=== PATIENT | male | born 1935 | race Caucasian/White ===

== ENCOUNTER 2017-10-11 07:41 | Emergency (ER) | payer MEDICARE, OTHER ==
[2017-10-11] MEDS ORDERED: Diazepam 5 MG TAB ONE (08:20)
[2017-10-11] MEDS ORDERED: HYDROcodone/Acetaminophen 10/325 mg Tablet ONE (08:20)
[2017-10-11] MEDS ORDERED: predniSONE 20 MG TAB ONE (08:20)
== END 2017-10-11 10:14 | disposition home or self-care (01) ==
LOC: ERS 07:41
DX: S39.012A Strain of muscle, fascia and tendon of lower back, initial encounter (principal); E03.9 Hypothyroidism, unspecified; Z85.46 Personal history of malignant neoplasm of prostate; Z79.899 Other long term (current) drug therapy; X58.XXXA Exposure to other specified factors, initial encounter; Y93.53 Activity, golf
CPT/HCPCS: 99283; J7506

== ENCOUNTER 2018-10-24 11:46 | Inpatient (IN) | payer MEDICARE, OTHER ==
[2018-10-24 12:25] LABS: #Eosinphils 0.1 thou/uL (0.0-0.7); #Lymphocytes 1.4 thou/uL (1.20-3.40); #Monocytes 1.3 thou/uL (0.11-0.59); #Neutrophils 6.2 thou/uL (1.40-6.50); %Basophils 0.4 % (0.0-1.0); %Eosinophils 1.6 % (0.0-10.0); %Lymphocytes 15.3 % (21.0-51.0); %Monocytes 14.4 % (0.0-10.0); %Neutrophils 68.3 % (42.0-75.0); Hemoglobin 14.8 g/dL (14.0-18.0); Mean Corpuscular HGB CONC 32.6 g/dL (32.0-36.0); Mean Corpuscular Hemoglobin 30.1 pg (27.0-31.0); Mean Corpuscular Volume 92.3 fL (78.0-98.0); Mean Platelet Volume 8.6 fL (7.4-10.4); Platelet Count 121 thou/uL (130-400); RBC Distribution Width 12.8 % (11.5-14.5); Red Blood Cell (RBC) Count 4.93 mill/uL (4.70-6.10)
[2018-10-24] MEDS ORDERED: metroNIDAZOLE 500 MG/100 ML BAG ONE (12:58)
[2018-10-24] MEDS ORDERED: Morphine 4 MG/ML VIAL ONE ×3 (12:58→18:45)
[2018-10-24 13:09] LABS: ALT (SGPT) 19 U/L (8-55); AST (SGOT) 19 U/L (5-34); Albumin 3.9 g/dL (3.4-4.8); Alkaline Phosphatase 65 U/L (40-150); Anion Gap 14 mmol/L (10-20); BUN (Urea Nitrogen) 19 mg/dL (8.4-25.7); Calc. Creatinine Clearance 0 mL/min (70-130); Calcium 9.2 mg/dL (7.8-10.44); Carbon Dioxide 19 mmol/L (23-31); Chloride 107 mmol/L (98-107); Estimated GFR-MDRD 43; Glucose 107 mg/dL (83-110); Potassium 4.1 mmol/L (3.5-5.1); Protein, Total 6.9 g/dL (5.8-8.1); Sodium 136 mmol/L (136-145)
--- NOTE | 2018-10-24 15:35 | CT ---
CONTRAST ENHANCED CT IMAGES ABDOMEN AND PELVIS: HISTORY: Abdominal pain, bloody stools. Contrast enhanced CT images of the abdomen and pelvis is obtained. IV contrast was given. The lung bases are unremarkable. No evidence of free intraperitoneal air is seen. The liver, is unremarkable. The gallbladder has been surgically removed. The spleen is unremarkable e xcept for some splenic calcifications compatible with granulomatous disease. The small bowel is unrem arkable no evidence of air fluid level. There is extensive colonic thickening and diffuse mucosal enhancement throughout the entire colon. th is is compatible with extensive colitis. There is also extensive sigmoid diverticulosis present. Bilateral renal cortical cysts are present. Incidentally noted, likely duodenal diverticulum was present. There is also extensive changes of spondylosis in the lumbar spine. IMPRESSION: 1. Extensive colonic thickening and enhancement compatible with colitis. 2. Sigmoid colonic diverticulosis. 1. POS: MARISSA
[2018-10-24] MEDS ORDERED: Ondansetron PF 4 MG/2 ML Vial IVP PRN (17:28)
[2018-10-24] MEDS ORDERED: Acetaminophen 325 MG TAB PO PRN (17:28)
[2018-10-24] MEDS ORDERED: hydrALAZINE 20 MG/ML VIAL SLOW IVP PRN (17:56)
--- NOTE | 2018-10-24 18:35 | HP ---
PRIMARY CARE PROVIDER: Dr. Joe Jackson. He is in [place], [place]. , fax #[phone]. CHIEF COMPLAINT: Rectal bleeding. HISTORY OF PRESENT ILLNESS: Mr. Balbuena is a pleasant 83-year-old gentleman, who was seen at [facility] on October 24, 2018. He lives in [place]. He is visiting here. Four days ago, he played golf. He reports that the ground was muddy. He was tired after a long day. He made dinner with fish. That night, he felt chills. Next morning, he had abdominal discomfort. He describes which was across his mid abdomen. In the next couple of days, he had a salad, steak and oysters. He reports that his stool was initially firm. It subsequently became soft, followed by liquid stools. He reports having rectal bleeding. He reports that he had 3 episodes of blood in stool yesterday. He denies any nausea or vomiting. He also reports that his abdominal pain was worse yesterday. He describes which was across his mid abdomen, dull, constant, 6/10 at its worst, nonradiating, accompanied by bloody stools. He did not sleep well last night. He denies any chest pain, shortness of breath, or lightheadedness. REVIEW OF SYSTEMS: All other systems reviewed and found to be negative. PAST MEDICAL HISTORY: 1. Dyslipidemia. 2. Hypothyroidism. 3. Bowel obstruction x3, which resolved with conservative measures. 4. Hypertension. PAST SURGICAL HISTORY: Cholecystectomy. SOCIAL HISTORY: No tobacco use or recreational drug use, occasional alcohol use. FAMILY HISTORY: His father of myocardial infarction at age 68. CODE STATUS: I discussed his code status. He is full code. ALLERGIES: NO KNOWN DRUG ALLERGIES. CURRENT MEDICATIONS: 1. Synthroid 75 mcg daily. 2. Aspirin 325 mg daily. 3. Coenzyme Q10. 4. Magnesium. 5. Medication for blood pressure, that he is unable to recall the name of. PHYSICAL EXAMINATION: GENERAL: On examination, Mr. Balbuena is awake and alert, not in acute distress. VITAL SIGNS: Blood pressure is 134/70, pulse 76, respiratory rate 20, and oxygen saturation 97% on room air. He is afebrile. EYES: No scleral icterus, no conjunctival pallor. ENT: Moist mucosal membranes. No oropharyngeal erythema or exudates. NECK: Supple, nontender, trachea is in midline. RESPIRATORY: Accessory muscles of breathing are not active. Chest wall movements are symmetric bilaterally. Lungs are clear to auscultation without wheeze, rhonchi, or crepitations. CARDIOVASCULAR: S1 and S2 are heard, regular. Peripheral pulses are palpable. No carotid bruit. No pericardial rub. ABDOMEN: Soft, mild right upper quadrant tenderness, no guarding or rigidity. Bowel sounds are heard. He has a scar over the right upper quadrant. NEUROLOGIC: Cranial nerves 2 through 12 intact, deep tendon reflexes 2+. MUSCULOSKELETAL: Power is 5/5 in all 4 extremities. SKIN: No rashes or subcutaneous nodules. LYMPHATIC: No cervical lymphadenopathy. PSYCHIATRIC: Normal mood, normal affect. The patient is oriented to person, place, and time. LABORATORY AND DIAGNOSTIC DATA: Mr. Balbuena's labs and investigations were reviewed. He has normal white count, normal hemoglobin, decreased platelet count of 121,000. Decreased carbon dioxide of 19, elevated creatinine of 1.57, normal blood urea nitrogen, otherwise unremarkable comprehensive metabolic profile. He had a CT scan of the abdomen and pelvis, which showed extensive colonic thickening and enhancement compatible with colitis and sigmoid colonic diverticulosis. ASSESSMENT AND PLAN: Mr. Balbuena is a pleasant 83-year-old gentleman, who was seen at [facility] on October 24, 2018. His problem list includes: 1. Lower gastrointestinal bleed: Mr. Balbuena is presenting with lower GI bleed, with evidence of colitis and diverticulosis on CT scan. He will be admitted to the hospital for further management. We will start him on empiric antibiotics for infectious colitis. We will check stool for evidence of infection. We will consult Gastroenterology for opinion and help with further management. 2. Hypertension: We will start him on p.r.n. hydralazine for blood pressure spikes. We will resume home medications once clarified. 3. Hypothyroidism: We will continue Synthroid. 4. Dyslipidemia: We will continue statin once clarified. Many thanks for allowing me to participate in your patient's care. Please feel free to contact me with any questions or concerns. LEVEL OF RISK: Moderate. LEVEL OF COMPLEXITY: Moderate. Job ID: [id number]
[2018-10-24] MEDS: Sodium Chloride 0.9% 1,000 ML IV SCH (20:01)
[2018-10-24] MEDS: metroNIDAZOLE 500 MG in Premix Bag 1 BAG IVPB SCH (20:01)
[2018-10-24 22:46] VITALS: BMI 36.9
[2018-10-25] MEDS: Morphine 4 MG/ML VIAL SLOW IVP PRN ×2 (00:06→05:11)
[2018-10-25] MEDS: metroNIDAZOLE 500 MG in Premix Bag 1 BAG IVPB SCH (05:10)
[2018-10-25] MEDS: Sodium Chloride 0.9% 1,000 ML IV SCH (05:13)
[2018-10-25 07:46] LABS: #Eosinphils 0.2 thou/uL (0.0-0.7); #Lymphocytes 1.1 thou/uL (1.20-3.40); #Monocytes 1.2 thou/uL (0.11-0.59); #Neutrophils 5.5 thou/uL (1.40-6.50); %Basophils 0.5 % (0.0-1.0); %Lymphocytes 13.3 % (21.0-51.0); %Monocytes 14.7 % (0.0-10.0); %Neutrophils 69.5 % (42.0-75.0); Hemoglobin 13.1 g/dL (14.0-18.0); Mean Corpuscular HGB CONC 33.5 g/dL (32.0-36.0); Mean Corpuscular Hemoglobin 30.2 pg (27.0-31.0); Mean Corpuscular Volume 90.2 fL (78.0-98.0); Mean Platelet Volume 8.6 fL (7.4-10.4); Platelet Count 120 thou/uL (130-400); RBC Distribution Width 12.8 % (11.5-14.5); Red Blood Cell (RBC) Count 4.35 mill/uL (4.70-6.10)
[2018-10-25 08:07] LABS: Anion Gap 12 mmol/L (10-20); BUN (Urea Nitrogen) 15 mg/dL (8.4-25.7); Calc. Creatinine Clearance 61 mL/min (70-130); Calcium 8.4 mg/dL (7.8-10.44); Carbon Dioxide 21 mmol/L (23-31); Chloride 107 mmol/L (98-107); Estimated GFR-MDRD 48; Glucose 98 mg/dL (83-110); Potassium 4.2 mmol/L (3.5-5.1); Sodium 136 mmol/L (136-145)
--- NOTE | 2018-10-25 11:13 | CON ---
DATE OF CONSULTATION: 10/25/2018 REASON FOR CONSULTATION: Colitis. HISTORY OF PRESENT ILLNESS: Fred Balbuena is an 83-year-old man, who splits his time between here and [place], [place]. He has no prior history of gastrointestinal disease. He reports having had a colonoscopy about 10 years ago in [place], which was normal. He was admitted to the hospital last night. He reports that about 5 days ago, he started having chills and rigors. The following day, he started to have some generalized abdominal discomfort. This is a dull and migratory pain throughout most of the abdomen, primarily the lower abdomen. Then, starting a couple of days ago, he began having loose stools, progressing to hematochezia. Initially, this was a small amount of red blood mixed in with the stool, but then yesterday he had a couple more episodes with more bright red blood in the stool. He was admitted to the hospital last night, started on IV ciprofloxacin and Flagyl. His last bowel movement was early this morning and he tells me that this was only slightly blood tinged, quite an improvement from before. His abdominal discomfort has lessened, though he did receive morphine. The CT of the abdomen and pelvis was notable for thickening throughout the entire colon as well as diverticulosis of the sigmoid colon. The gallbladder is absent and the scan is really otherwise normal. Laboratory studies do show some renal insufficiency as well as a mild thrombocytopenia. Stool studies were performed and are negative for C. difficile and Campylobacter as well as shiga toxin. He has no other complaints. Hemoglobin is 13.1. REVIEW OF SYSTEMS: Full review of systems including constitutional, head, eyes, ears, nose, throat, GI, , cardiovascular, respiratory, musculoskeletal, and neurologic systems are negative except as noted in the HPI. PAST MEDICAL HISTORY: Hyperlipidemia, hypothyroidism, hypertension, cholecystectomy, and 3 separate hospitalizations for small bowel obstruction, all treated conservatively and resolved spontaneously. ALLERGIES: NO KNOWN DRUG ALLERGIES. OUTPATIENT MEDICATIONS: 1. Aspirin 325 mg daily. 2. Synthroid. 3. Coenzyme Q10. 4. Magnesium. INPATIENT MEDICATIONS: 1. IV ciprofloxacin. 2. IV Flagyl. 3. IV morphine p.r.n. SOCIAL HISTORY: Alcohol use is occasional. No smoking or drug use. FAMILY HISTORY: Negative for inflammatory bowel disease or GI malignancy. PHYSICAL EXAMINATION: VITAL SIGNS: Temperature 98.2, pulse 65, blood pressure 110/67, and 92% oxygen saturation on room air. GENERAL: An 83-year-old man, sitting in bed comfortably, nontoxic appearing in good spirits, in no distress. SKIN: No jaundice. No rashes were palpable. HEENT: Eyes no scleral icterus. Extraocular movements intact. ENT, mucous membranes moist. No oral lesions. LYMPH: No submandibular or supraclavicular lymphadenopathy. THYROID: Nontender to palpation. HEART: Regular rate and rhythm. LUNGS: Clear to auscultation bilaterally. ABDOMEN: Nondistended. Bowel sounds present. Soft, actually nontender to palpation throughout. No masses or organomegaly appreciated. EXTREMITIES: No peripheral edema. VESSELS: Radial pulses 2+ bilaterally. NEURO: Cranial nerves 2 through 12 intact bilaterally. No focal deficits. LABORATORY STUDIES: Initial hemoglobin was 14.8 and this morning, it is 13.1. WBC 8 and platelets 120. BUN 15, creatinine 1.41, sodium 136, potassium 4.2, total bilirubin 1.0, alkaline phosphatase 65, AST 19, ALT 19, and albumin 3.9. IMAGING STUDIES: CT of the abdomen and pelvis shows sigmoid diverticulosis and thickening of the entire colon. The gallbladder is absent. The skin is otherwise normal. ASSESSMENT AND PLAN: 1. Acute colitis. 2. Hematochezia, secondary to acute colitis. I had a long discussion with the patient and his regarding his presentation. All of his symptoms are acute, and consistent with colitis involving the entire colon. Infectious diarrhea would leave the differential. I do note that stool studies back so far are negative, but often we see this with pathogens that can be identified by stool testing. It is also possible that this represents the onset of inflammatory bowel disease, but the presentation is really too acute to tell. Nothing to be gained by colonoscopy at this particular time. I agree with the antibiotics, which have already been initiated empirically. Continue to treat supportively. Expect that symptoms will improve over the next few days. If not, then colonoscopy investigation could be considered. Regardless, I think he should undergo colonoscopy in the outpatient setting several weeks from now, for diagnostic purposes of symptoms if not resolved and for final colon screening exam if they have resolved. GI can follow along. Please call at anytime with questions or concerns. Job ID: [id number]
[2018-10-25] MEDS ORDERED: Sodium Chloride 0.9% 1,000 ML IV SCH (11:30)
[2018-10-25] MEDS ORDERED: metroNIDAZOLE 500 MG TAB PO SCH (15:00)
[2018-10-25 15:50] VITALS: BP 100/59; TEMP 97.9
--- NOTE | 2018-10-25 18:53 | DIS ---
DATE OF ADMISSION: 10/24/2018 DATE OF DISCHARGE: 10/25/2018 PRIMARY CARE PROVIDER: Dr. Joe Jackson. He is in [place], [place]. . . DISCHARGE DIAGNOSES: 1. Lower gastrointestinal bleed. 2. Colitis. 3. Probable chronic kidney disease. CONDITION OF PATIENT ON THE DAY OF DISCHARGE: Stable. I assessed Mr. Balbuena on the day of discharge. He denies any chest pain or shortness of breath. Vital signs are stable. S1 and S2 are heard, regular. Lungs are clear to auscultation bilaterally. CONSULTATIONS DURING THIS HOSPITALIZATION: Gastroenterology, Edenilson El MD HOSPITAL COURSE: Mr. Balbuena is a pleasant 83-year-old gentleman, who was admitted to [facility] for acute colitis and lower GI bleed on October 24, 2018. Please refer to my history and physical note dated October 24, 2018 for further details. He was seen by Gastroenterology Service. Following admission, Mr. Balbuena showed significant dramatic improvement. He had stools that were nonbloody. His abdominal pain also resolved. He had elevated creatinine of 1.57 at the time of admission, with blood urea nitrogen of 19; and estimated GFR of 43. On the day of discharge, creatinine improved to 1.41 and estimated GFR improved to 48. Blood urea nitrogen continues to be normal. It is unclear whether this is acute or chronic renal failure. He has been advised to stop lisinopril use still he is seen by his primary care provider. He is also advised to check his blood pressure and heart rate 3 times a day and show the readings to his primary care provider. DISCHARGE MEDICATIONS: 1. Aspirin 325 mg daily. 2. Synthroid 75 mcg daily. 3. Ciprofloxacin 500 mg 2 times a day for 1 week. 4. Metronidazole 500 mg 3 times a day for 1 week. Gastroenterology Service felt that he will need colonoscopy as an outpatient. During this hospitalization, he had negative Clostridium difficile assay, negative Campylobacter and shiga toxin tests. Stool culture is preliminary and showed few normal enteric shravan. Many thanks for allowing me to participate in your patient's care. Please feel free to contact me with any questions or concerns. DISCHARGE DESTINATION: Home. TOTAL AMOUNT OF TIME SPENT COORDINATING THIS DISCHARGE: 33 minutes. Job ID: [id number]
[2018-10-25] MEDS ORDERED: Ciprofloxacin 500 MG TAB PO SCH (20:00)
[2018-10-26] MEDS ORDERED: Levothyroxine Sodium 75 MCG TAB PO SCH (06:00)
== END 2018-10-25 19:24 | disposition home or self-care (01) | DRG 392 ==
LOC: ERS 11:46 → SURG A 16:48
PROVIDERS: ADMIT Internal Medicine; ATTEND Internal Medicine
DX: K52.9 Noninfective gastroenteritis and colitis, unspecified (principal); K92.2 Gastrointestinal hemorrhage, unspecified; E78.5 Hyperlipidemia, unspecified; E03.9 Hypothyroidism, unspecified; N18.9 Chronic kidney disease, unspecified; I12.9 Hypertensive chronic kidney disease with stage 1 through stage 4 chronic kidney disease, or unspecified chronic kidney disease; Z90.49 Acquired absence of other specified parts of digestive tract; Z79.82 Long term (current) use of aspirin
CPT/HCPCS: 36415; 74177; 80048; 80053; 82274; 85025; 86850; 86900; 86901; 87045; 87046; 87324; 87449; 87899; 96365; 96375; 96376; J0744; J2270

== ENCOUNTER 2021-01-25 14:30 | Inpatient (IN) | payer MEDICARE ==
[~2021-01-25 14:30] MED LIST: Iopamidol-370 76% 500 ML 1 ML ONE
[2021-01-25] MEDS ORDERED: Ondansetron PF 4 MG/2 ML Vial ONE (14:55)
[2021-01-25] MEDS ORDERED: Morphine 4 MG/ML VIAL ONE (14:55)
[2021-01-25 15:16] LABS: #Basophils 0.1 thou/uL (0.0-0.2); #Eosinphils 0.2 thou/uL (0.0-0.7); #Lymphocytes 1.5 thou/uL (1.20-3.40); #Monocytes 1.2 thou/uL (0.11-0.59); #Neutrophils 7.4 thou/uL (1.40-6.50); %Basophils 0.6 % (0.0-1.0); %Eosinophils 2.1 % (0.0-10.0); %Neutrophils 71.3 % (42.0-75.0); Hemoglobin 16.8 g/dL (14.0-18.0); Mean Corpuscular HGB CONC 32.4 g/dL (32.0-36.0); Mean Corpuscular Hemoglobin 30.2 pg (27.0-31.0); Mean Corpuscular Volume 93.2 fL (78.0-98.0); Mean Platelet Volume 8.9 fL (7.4-10.4); Platelet Count 152 thou/uL (130-400); RBC Distribution Width 13.2 % (11.5-14.5); Red Blood Cell (RBC) Count 5.56 mill/uL (4.70-6.10); White Blood Cell (WBC) Count 10.4 thou/uL (4.8-10.8)
[2021-01-25 15:40] LABS: ALT (SGPT) 14 U/L (8-55); AST (SGOT) 15 U/L (5-34); Albumin 4.5 g/dL (3.4-4.8); Alkaline Phosphatase 72 U/L (40-110); Anion Gap 15 mmol/L (10-20); BUN (Urea Nitrogen) 20 mg/dL (8.4-25.7); Bilirubin, Total 0.9 mg/dL (0.2-1.2); Calc. Creatinine Clearance 0 mL/min (70-130); Carbon Dioxide 24 mmol/L (23-31); Chloride 106 mmol/L (98-107); Globulin 3.5 g/dL (2.4-3.5); Glucose 135 mg/dL (83-110); Magnesium 2.1 mg/dL (1.6-2.6); Potassium 4.3 mmol/L (3.5-5.1); Sodium 141 mmol/L (136-145)
[2021-01-25] MEDS ORDERED: Morphine 4 MG/ML VIAL SLOW IVP PRN (18:06)
[2021-01-25] MEDS ORDERED: Ondansetron PF 4 MG/2 ML Vial IVP PRN (18:06)
[2021-01-25] MEDS ORDERED: hydrALAZINE 20 MG/ML VIAL SLOW IVP PRN (18:06)
[2021-01-25] MEDS ORDERED: Morphine 2 MG/ML VIAL SLOW IVP PRN (18:06)
[2021-01-25] MEDS ORDERED: Enoxaparin Sodium 40 MG/0.4 ML SYRINGE SC SCH (21:00)
[2021-01-25] MEDS: Famotidine/PF 20 mg/2ml Vial SLOW IVP SCH (21:47)
[2021-01-25] MEDS: D5 1/2 NS w/20 mEq KCL 1,000 ML IV SCH (21:47)
[2021-01-25 22:13] VITALS: BMI 30.2
[2021-01-26] MEDS: D5 1/2 NS w/20 mEq KCL 1,000 ML IV SCH ×2 (02:23→05:17)
[2021-01-26 05:30] LABS: #Eosinphils 0.3 thou/uL (0.0-0.7); #Lymphocytes 1.5 thou/uL (1.20-3.40); #Monocytes 1.1 thou/uL (0.11-0.59); #Neutrophils 4.8 thou/uL (1.40-6.50); %Basophils 0.5 % (0.0-1.0); %Eosinophils 3.9 % (0.0-10.0); %Monocytes 14.3 % (0.0-10.0); %Neutrophils 62.2 % (42.0-75.0); Hemoglobin 15.2 g/dL (14.0-18.0); Mean Corpuscular HGB CONC 32.3 g/dL (32.0-36.0); Mean Corpuscular Volume 92.8 fL (78.0-98.0); Mean Platelet Volume 8.8 fL (7.4-10.4); Platelet Count 136 thou/uL (130-400); RBC Distribution Width 13.2 % (11.5-14.5); Red Blood Cell (RBC) Count 5.06 mill/uL (4.70-6.10); White Blood Cell (WBC) Count 7.7 thou/uL (4.8-10.8)
[2021-01-26] MEDS ORDERED: Levothyroxine Sodium 75 MCG TAB PO SCH (06:00)
[2021-01-26 06:09] LABS: Anion Gap 7 mmol/L (10-20); BUN (Urea Nitrogen) 16 mg/dL (8.4-25.7); Calc. Creatinine Clearance 54 mL/min (70-130); Calcium 8.7 mg/dL (7.8-10.44); Carbon Dioxide 28 mmol/L (23-31); Chloride 109 mmol/L (98-107); Glucose 114 mg/dL (83-110); Potassium 4.2 mmol/L (3.5-5.1); Sodium 140 mmol/L (136-145)
[2021-01-26] MEDS: Famotidine/PF 20 mg/2ml Vial SLOW IVP SCH (08:16)
[2021-01-26] MEDS ORDERED: MD-Gastroview 120 ML BOT ONE (11:00)
[2021-01-26 16:01] VITALS: BP 97/60; TEMP 98.1
[2021-01-26] MEDS ORDERED: Atorvastatin Calcium 20 MG TAB PO SCH (21:00)
[2021-01-27] MEDS ORDERED: Aspirin 325 MG TAB PO SCH (09:00)
[2021-01-27] MEDS ORDERED: Lisinopril 5 MG TAB PO SCH (09:00)
== END 2021-01-26 16:02 | disposition home or self-care (01) | DRG 390 ==
LOC: ERS 14:30 → SURG A 17:23
PROVIDERS: ADMIT Specialist; ATTEND Specialist
PROC: 0D9670Z Drainage of Stomach with Drainage Device, Via Natural or Artificial Opening (ICD-10-PCS; principal; 2021-01-25)
DX: K56.609 Unspecified intestinal obstruction, unspecified as to partial versus complete obstruction (principal); I25.10 Atherosclerotic heart disease of native coronary artery without angina pectoris; I10 Essential (primary) hypertension; Z96.652 Presence of left artificial knee joint; E03.9 Hypothyroidism, unspecified; Z85.46 Personal history of malignant neoplasm of prostate; Z90.49 Acquired absence of other specified parts of digestive tract; Z90.79 Acquired absence of other genital organ(s); Z79.899 Other long term (current) drug therapy; Z79.82 Long term (current) use of aspirin; Z79.890 Hormone replacement therapy
CPT/HCPCS: 36415; 43752; 71045; 74018; 74177; 74250; 80048; 80053; 83605; 83735; 85025; 96374; 96375; J1650; J2270; J2405; J3480; S0028

== ENCOUNTER 2023-04-20 07:24 | Observation (INO) | payer MEDICARE ==
[2023-04-20 08:25] LABS: #Eosinphils 0.4 thou/uL (0.0-0.7); #Monocytes 1.1 thou/uL (0.11-0.59); #Neutrophils 6.1 thou/uL (1.40-6.50); %Basophils 0.4 % (0.0-1.0); %Eosinophils 4.2 % (0.0-10.0); %Lymphocytes 15.9 % (21.0-51.0); %Monocytes 11.7 % (0.0-10.0); %Neutrophils 67.5 % (42.0-75.0); Hematocrit 47.2 % (42.0-52.0); Hemoglobin 15.5 g/dL (14.0-18.0); Mean Corpuscular HGB CONC 32.8 g/dL (32.0-36.0); Mean Corpuscular Volume 91.5 fl (78.0-98.0); Mean Platelet Volume 10.7 fL (7.4-10.4); Platelet Count 157 10x3/uL (130-400); RBC Distribution Width 13.9 % (11.5-14.5); Red Blood Cell (RBC) Count 5.16 mill/uL (4.70-6.10); White Blood Cell (WBC) Count 9.1 10x3/uL (4.8-10.8)
[2023-04-20 08:34] LABS: Bacteria/HPF None Seen HPF (None Seen); Bilirubin Negative (Negative); Blood, Urine Negative (Negative); CAUTI Indications for Culture Pelvic or flank pain; Clarity Clear (Clear); Glucose, Urine (Dipstick) Normal (Negative); Ketone, Urine Negative (Negative); Leukocyte Negative Leu/uL (Negative); Nitrite Negative (Negative); Protein, Urine (Dipstick) 10 mg/dL (Neg-Trace); RBC/HPF 0-3 HPF (0-3); Specific Gravity, Urine 1.025 (1.002-1.036); Squamous Epithelial 0-3 HPF (0-3); Urobilinogen Normal mg/dL (Less than 2); WBC/HPF None Seen HPF (0-3)
[2023-04-20 08:36] LABS: Urine Culture Reflex No No
[2023-04-20] MEDS ORDERED: Iopamidol-370 76% 500 ML MDV (1 ML CHARGE) ONE (08:51)
[2023-04-20 08:54] LABS: ALT (SGPT) 16 U/L (8-55); AST (SGOT) 17 U/L (5-34); Albumin 4.4 g/dL (3.4-4.8); Alkaline Phosphatase 78 U/L (40-110); Anion Gap 14 mmol/L (10-20); BUN (Urea Nitrogen) 22 mg/dL (8.4-25.7); Calc. Creatinine Clearance 0 mL/min (70-130); Calcium 10.1 mg/dL (7.8-10.44); Carbon Dioxide 23 mmol/L (23-31); Chloride 106 mmol/L (98-107); Estimated GFR 41; Globulin 3.4 g/dL (2.4-3.5); Glucose 110 mg/dL (83-110); Lipase 24 U/L (8-78); Potassium 4.2 mmol/L (3.5-5.1); Protein, Total 7.8 g/dL (5.8-8.1); Sodium 139 mmol/L (136-145)
[2023-04-20] MEDS ORDERED: Morphine 4 MG/ML VIAL ONE (10:39)
[2023-04-20] MEDS ORDERED: Ondansetron PF 4 MG/2 ML Vial ONE (10:39)
[2023-04-20] MEDS ORDERED: Morphine 2 MG/ML VIAL SLOW IVP PRN (11:08)
[2023-04-20] MEDS ORDERED: Ondansetron PF 4 MG/2 ML Vial IVP PRN ×2 (12:43→13:31)
[2023-04-20] MEDS ORDERED: Ondansetron ODT 4 MG TAB PO PRN (12:43)
[2023-04-20] MEDS ORDERED: Lactated Ringer's 1,000 ML IV SCH (12:45)
[2023-04-20 14:47] VITALS: BMI 29.7
[2023-04-20] MEDS: Sodium Chloride 0.9% 1,000 ML IV SCH (15:12)
[2023-04-21] MEDS: Sodium Chloride 0.9% 1,000 ML IV SCH (02:07)
[2023-04-21 03:06] VITALS: TEMP 98.1
[2023-04-21 05:07] LABS: #Basophils 0.1 thou/uL (0.0-0.2); #Eosinphils 0.5 thou/uL (0.0-0.7); #Monocytes 0.8 thou/uL (0.11-0.59); #Neutrophils 4.2 thou/uL (1.40-6.50); %Basophils 0.7 % (0.0-1.0); %Eosinophils 7.4 % (0.0-10.0); %Lymphocytes 17.8 % (21.0-51.0); %Monocytes 12.1 % (0.0-10.0); %Neutrophils 61.7 % (42.0-75.0); Hematocrit 40.7 % (42.0-52.0); Hemoglobin 12.8 g/dL (14.0-18.0); Mean Corpuscular HGB CONC 31.4 g/dL (32.0-36.0); Mean Corpuscular Hemoglobin 29.8 pg (27.0-31.0); Mean Platelet Volume 10.8 fL (7.4-10.4); Platelet Count 133 10x3/uL (130-400); RBC Distribution Width 14.2 % (11.5-14.5); Red Blood Cell (RBC) Count 4.29 mill/uL (4.70-6.10); White Blood Cell (WBC) Count 6.8 10x3/uL (4.8-10.8)
[2023-04-21 05:26] LABS: Mean Corpuscular Volume 94.9 fl (78.0-98.0)
[2023-04-21 05:43] LABS: Anion Gap 9 mmol/L (10-20); BUN (Urea Nitrogen) 18 mg/dL (8.4-25.7); Calc. Creatinine Clearance 52 mL/min (70-130); Calcium 8.5 mg/dL (7.8-10.44); Carbon Dioxide 27 mmol/L (23-31); Chloride 109 mmol/L (98-107); Estimated GFR 47; Glucose 84 mg/dL (83-110); Potassium 4.4 mmol/L (3.5-5.1); Sodium 141 mmol/L (136-145)
[2023-04-21 15:45] VITALS: BP 112/74
[2023-04-22] MEDS ORDERED: Levothyroxine Sodium 75 MCG TAB PO SCH (06:00)
[2023-04-22] MEDS ORDERED: Atorvastatin Calcium 20 MG TAB PO SCH (09:00)
[2023-04-22] MEDS ORDERED: Lisinopril 5 MG TAB PO SCH (09:00)
== END 2023-04-21 15:55 | disposition home or self-care (01) ==
LOC: ERS 07:24 → SURG A 10:55
PROVIDERS: ADMIT Internal Medicine; ATTEND Internal Medicine
DX: K56.600 Partial intestinal obstruction, unspecified as to cause (principal); E03.9 Hypothyroidism, unspecified; E78.5 Hyperlipidemia, unspecified; I10 Essential (primary) hypertension; Z90.79 Acquired absence of other genital organ(s); Z98.49 Cataract extraction status, unspecified eye; Z96.652 Presence of left artificial knee joint; Z79.82 Long term (current) use of aspirin; Z79.890 Hormone replacement therapy; Z79.899 Other long term (current) drug therapy
CPT/HCPCS: 74177; 80048; 80053; 81001; 83605; 83690; 85025 ×2; 96374; 96375; 96376; 99285; G0378 ×3; 36415; J1650; J2270; J2272; J2405; J7050; Q9967